=== PATIENT | male | born 1975 | race Caucasian/White ===

== ENCOUNTER 2021-09-26 09:50 | Outpatient (CLI) | payer BC, SELFPAY | END 2021-09-26 23:59 | disposition home or self-care (01) | LOC: PAT 01-06 09:51 | PROVIDERS: Visit Provider Anesthesiology Pain Medicine | DX: Z00.00 Encounter for general adult medical examination without abnormal findings (principal) ==

== ENCOUNTER 2023-06-29 18:37 | Emergency (ER) | payer BC, SELFPAY ==
[2023-06-29 18:39] VITALS: BP 152/95; PULSE 110; RESP 22; TEMP 36.3; O2SAT 100; BMI 38.9
== END 2023-06-29 19:21 | disposition left against medical advice (07) ==
LOC: ED 20:06
DX: Z00.00 Encounter for general adult medical examination without abnormal findings (principal)

== ENCOUNTER 2023-08-23 07:50 | Day surgery (SDC) | payer BC, SELFPAY ==
--- NOTE | 2023-08-21 08:54 | EKG12_ITS ---
Test Reason : PREOP Blood Pressure : / mmHG Vent. Rate : 088 BPM Atrial Rate : 088 BPM P-R Int : 128 ms QRS Dur : 074 ms QT Int : 336 ms P-R-T Axes : 020 035 073 degrees QTc Int : 406 ms Normal sinus rhythm Low voltage QRS Septal infarct , age undetermined Abnormal ECG Confirmed by ELLIS KWOK, BERNICE ([id number]), society editor JONATHAN THAO ([id number]) on 08/22/2023 6:20:51 AM Referred By: Lionel Farmer Confirmed By:BERNICE CORRAL MD
[2023-08-21 10:17] LABS: Hemoglobin 16.7 g/dL (13.0-16.5); Mean Corp Hgb Conc 35.5 g/dL (32-36); Mean Corpuscular Hgb 31.4 pg (27.0-32.0); Mean Corpuscular Volume 88.3 fL (80-94); Mean Platelet Vol. 9.9 fl (6.2-12.0); Platelet Count 324 K/mm3 (150-450); RBC Distribution Width CV 12.8 % (11.6-14.6); Red Blood Count 5.32 M/mm3 (4.6-6.2); White Blood Count 7.8 K/mm3 (4.4-11.0)
[2023-08-21 11:03] LABS: Anion Gap 8 (5-15); BUN 11 mg/dL (7-18); BUN/Creat Ratio 10.8 RATIO (10-20); Calcium,Total 9.3 mg/dL (8.5-10.1); Chloride 105 mmol/L (98-107); Creatinine, Serum 1.02 mg/dL (0.70-1.30); EST Glomerular Filtration Rate 84 mL/min (>60); Est Glom Filt Rate - Afr Amer 101 mL/min (>60); Glucose 93 mg/dL (74-106); Potassium 3.8 mmol/L (3.5-5.1); Sodium Level 140 mmol/L (136-145)
[2023-08-23] VITALS (9 sets, daily range): BP systolic 130–144; BP diastolic 73–94; PULSE 82–95; RESP 16–18; TEMP 36.3–36.9; O2SAT 94–99; BMI 39.6
--- OUTSIDE RECORDS SUMMARY | 2023-08-23 08:21 | XMS RPT_ITS | CCD ---
Author Name Unknown Address [address] [place] [address] Organization [facility] Care Team Providers Care Customs Broker Name Role Phone Radha KWOK, Patrice Haywood Primary Care Provider GILA PINO DO Attending Unavailable PHYSICIAN, NOT RECORDED Primary Care Unavaila ble Allergies Allergy Classification Reported Allergen(s) Allergy Type Date of Onset Reaction(s) Facility (7 sources) Acetaminophen / oxyCODONE Drug Allergy 6 Other: See Comments [facility] (7 sources) Codeine Drug Allergy 0 Hives, GI Upset, Itching [facility] Work Phone: (7 sources) Lisinopril Drug Allergy 8 Cough [facility] (7 sources) peanut allergenic extract Drug Allergy 3 Swelling [facility] Medications Completed/Discontinued Medications Medication Drug Class(es) Dates Sig (Normalized) Sig (Original) amLODIPine 10 mg oral tablet (9 sources) Dihydropyridine Calcium Channel [facility] Start: 06-13-2021 End: 09-11-2022 take 1 tablet by mouth once daily amLODIPine (NORVASC) 10 mg tablet Take 1 tablet by mouth once daily. 90 tablet 0 09/11/2022 Active Problems Active Problems Problem Classification Problem Date Documented Da te Episodic/Chronic Anxiety disorders (7 sources) Generalized anxiety disorder; Translations: [Generalized anxiety disorder] 01-20-2021 Chronic Essential hypertension (10 sources) Benign essential hypertension; Translations: [Essential (primary) hypertension] Onset: 02-26-2012 02-26-2012 Chronic Hemorrhoids (1 source) Hemorrhoids; Translations: [Unspecified hemorrhoids] Episodic Other eye disorders (1 source) Xanthoma of bilateral eyelids; Translations: [Xanthelasma of right eye, unspecified eyelid] Episodic Other nutritional; endocrine; and metabolic disorders (7 sources) Obesity; Translations: [Obesity, unspecified] Onset: 02-26-2012 02-26-2012 Chronic Other upper respiratory disease (7 sources) Allergic rhinitis; Translations: [Allergic rhinitis, unspecified] Onset: 02-26-2012 02-26-2012 Chronic Spondylosis; intervertebral disc disorders; other back problems (14 sources) Cervical radiculopathy; Translations: [Other spondylosis with radiculopathy, cervical region] Onset: 03-17-2013 03-17-2013 Chronic Past or Other Problems Problem Classification Problem Date Documented Da te Episodic/Chronic Other connective tissue disease (7 sources) Impingement syndrome of right shoulder region; Translations: [Impingement syndrome of right shoulder] Onset: 04-11-2019 04-11-2019 Episodic Other connective tissue disease (7 sources) Bursitis of shoulder; Translations: [Bursitis of right shoulder] Onset: 04-11-2019 04-11-2019 Episodic Other non-traumatic joint disorders (7 sources) Shoulder pain; Translations: [Pain in right shoulder] Onset: 04-11-2019 04-11-2019 Episodic Spondylosis; intervertebral disc disorders; other back problems (20 sources) Backache; Translations: [Dorsalgia, unspecified] Onset: 07-18-2013 07-18-2013 Episodic Results Test Name Value Interpretation Reference Range Facil ity Vital Signs Date Time Vital Sign Value Performing Clinician Faci lity 12-07-2021 11:19-0400 Body weight 127.46 kg Patrice Garcia MD Work Phone: [facility] 12-07-2021 11:19-0400 Diastolic blood pressure 82 mm[Hg] Patrice Garcia MD Work Phone: [facility] 12-07-2021 11:19-0400 Heart rate 96 /min Patrice Garcia MD Work Phone: [facility] 12-07-2021 11:19-0400 Systolic blood pressure 132 mm[Hg] Patrice Garcia MD Work Phone: [facility] Encounters Encounter Date Encounter Type Care Provider Facility Start: 06-29-2023 End: 06-29-2023 Emergency department patient visit [facility] Start: 09-11-2022 Arelycarlos Bobby Sima [employer] 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: [facility] Procedures Date Procedure Procedure Detail Performing Clinician Start: 03-05-2020 Adult depression screening assessment Patrice Garcia MD Work Phone: Plan of Treatment Date Care Activity Detail Author Start: 06-19-2027 Urine microalbumin profile DTA P,TDAP,TD (3 - Td or Tdap) [facility] Start: 12-07-2022 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 LIZA DISEASE VISIT ANNUAL PCP TEAM CHRONIC DISEASE VISIT [facility] Start: 08-20-2022 DEPRESSION ASSESSMENT DEPRESSION ASS ESSMENT [facility] Start: 04-20-2022 Influenza vaccination C [facility] Start: 01-20-2022 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 LIZA DISEASE VISIT ANNUAL PCP TEAM CHRONIC DISEASE VISIT [facility] Start: 01-20-2022 COVID-19 VACCINE (1) COVID-19 VACCIN E (1) [facility] Immunizations Immunization Date Immunization Notes Care Provider Fa cili 06-19-2017 tetanus toxoid, reduced diphtheria toxoid, and acellular pertussis vaccine, adsorbed Patrice Garcia MD Work Phone: [facility] Work Phone: 06-18-2017 influenza, injectabl e, quadrivalent, contains preservative Patrice Garcia MD Work Phone: [facility] 04-20-2004 diphtheria and tetan us toxoids, adsorbed for pediatric use Patrice Garcia MD Work Phone: [facility] 06-20-2003 influenza virus vaccine, whole virus Patrice Garcia MD Work Phone: [facility] 05-20-2002 influenza virus vaccine, whole virus Patrice Garcia MD Work Phone: [facility] 04-09-2001 Meningococcal, MCV4, unspecified conjugate formulation(groups A, C, Y and W-135) Patrice Garcia MD Work Phone: [facility] 12-23-1999 hepatitis A vaccine, unspecified formulation Patrice Garcia MD Work Phone: [facility] Payers Date Payer Category Payer Unknown [id number] 2018 Unknown [employer] PPO OOS [id number] 2018-Present [phone] [address] [place] [address] PPO [id number] 2018 Unknown [employer] CARD PPO OOS [id number] 2018-Present [phone] [address] [place] [id number] PPO [id number] 1975 Unknown [id number] Social History Date Type Detail Facility Start: 02-26-2012 Tobacco smoking stat [facility] Never smoked tobacco [facility] Start: 03-07-2021 End: 12-07-2021 Alcohol intake Current non-drinker of alcohol (finding) [facility] Start: 07-23-2020 End: 12-05-2021 History SDOH Alcohol Frequency 1 [facility] Start: 07-23-2020 End: 12-05-2021 History SDOH Social Connections Phone 5 [facility] Start: 03-05-2020 End: 12-05-2021 History SDOH Social Connections Get Together 2 [facility] Start: 03-05-2020 End: 12-05-2021 History SDOH Social Connections Sikh 3 [facility] Start: 05-19-2020 Education 18 [facility] Start: 1975 Sex Assigned At Not on file C [facility] Start: 12-05-2021 History SDOH Alcohol Std Drinks 98 [facility] Start: 11-27-2021 End: 12-07-2021 Exposure to SARS-CoV-2 (event) Not sure [facility] Start: 02-26-2012 Tobacco use and exposure Smoke less tobacco non-user [facility] Clinical Notes 07-17-2016 to 09-11-2022 Telephone Encounter - Jeana Mar LPN - 09/11/2022 2:38 PM ESTTelephone Encounter - Diamante Gao APRN.CNP - 09/11/2022 10:19 AM Vic Garcia MD - 12/07/2021 11:25 AM EDT Note Date & Type Note Facility 09-11-2022 Miscellaneous Notes Left a message for pt to call the office and ask to speak to a nurse. Jeana Mar LPN Due for routine follow-up. Please assist in scheduling. Diamante Gao APRN.CNP Patient has been identified by name and date of : Yes Requested Prescriptions Pending Prescriptions Disp Refills amLODIPine (NORVASC) 10 mg tablet 90 tablet 0 Sig: Take 1 tablet by mouth once daily. RX INSTRUCTIONS: Patient aware RX will be sent to pharmacy. No need to notify patient. Meghana King MA Mauri: 11/2021 (acute issue) No appointment scheduled Last refill; 06/13/2022 90 tablets documented in this encounter [facility] 06-23-2022 Miscellaneous Notes 90 day supply sent. Keep appointment as scheduled to keep getting refills. Diamante Gao APRN.CNP Patient scheduled for OV 07/21/22. Patient requesting 90 day fill as his insurance will not cover 30 days due to the program he's in. Can we submit 90 with no refills. Explained to patient if he cancels or no shows for the appt he will be back in the same boat in 3 months. He voiced understanding. Patient is overdue for annual physical. Please call to schedule OV. Pt reports his pharmacy called him and told him to call providers office and have a prescription sent in for 90 days instead of 30 days. Pt states he took his last pill today. Patient has been identified by name and date of : Yes Patient phones for refill(s): Requested Prescriptions Pending Prescriptions Disp Refills losartan (COZAAR) 50 mg tablet 90 tablet 1 Sig: Take 1 tablet by mouth once daily. Date of last office visit in primary care: 12/07/21 Future visit: none Last 2 Encounter Wt Readings: Date: Wt: 12/07/2021 127.5 kg (281 lb) 03/07/2021 125.5 kg (276 lb 9.6 oz) Previous labs/tests for medication: Blood Pressure: BUN (mg/dL) Date Value 03/05/2020 9 Sodium (mmol/L) Date Value 03/05/2020 136 Last 1 Encounter BP Readings: Date: BP: 12/07/2021 132/82 Please advise. Thank you. Radha Dumont RN documented in this encounter [facility] 06-13-2022 Miscellaneous Notes Patient is due for follow-up. Please assist in scheduling. Diamante Gao APRN.CNP Patient has been identified by name and date of : Yes Patient phones for refill(s): Requested Prescriptions Pending Prescriptions Disp Refills amLODIPine (NORVASC) 10 mg tablet 90 tablet 3 Sig: Take 1 tablet by mouth once daily. levocetirizine (XYZAL) 5 mg tablet 90 tablet 1 Sig: Take 1 tablet by mouth once daily. losartan (COZAAR) 50 mg tablet 30 tablet 5 Sig: Take 1 tablet by mouth once daily. Date of last office visit in primary care: 12/07/21 Please advise. Thank you. Suzanne Alva LPN documented in this encounter [facility] 12-26-2021 Miscellaneous Notes Patient has been identified by name and date of : Yes Pending Prescriptions Disp Refills LOSARTAN 50 MG TABLET 30 tablet 5 Sig: Take 1 tablet by mouth once daily. SHIVA: No RX INSTRUCTIONS: Patient aware RX will be sent to pharmacy. No need to notify patient. Meghana King MA Mauri: 11/2021 Nov: 01/2022 Last refill; 06/2021 documented in this encounter [facility] 12-16-2021 Miscellaneous Notes Patient has been identified by name and date of : Yes Patient phones for refill(s): Pending Prescriptions Disp Refills HYDROCORTISONE 2.5 % TOPICAL CREAM WITH PERINEAL APPLICATOR 28 g 2 Sig: by RECTAL route twice daily. SHIVA: No LEVOCETIRIZINE 5 MG TABLET 90 tablet 1 Sig: Take 1 tablet by mouth once daily. SHIVA: No Date of last office visit in primary care: MAURI 12/07/2021 Appointment scheduled for 02/06/2022 Last 2 Encounter Wt Readings: Date: Wt: 12/07/2021 127.5 kg (281 lb) 03/07/2021 125.5 kg (276 lb 9.6 oz) Please advise. Thank you. JOY Chand documented in this encounter [facility] 12-07-2021 Note HNO ID: [id number] Author: Patrice Garcia MD Service: ? Author Type: Physician Type: Progress Notes Filed: 12/07/2021 3:11 PM Note Text: Chief Complaint Patient presents with: Rectal Problem: hemorrhoids Back Pain: scitica bilateral HPI Ashutosh Longo is a 45 year old male who presents here today for Evaluation of hemorrhoids. Patient states that he has persistent hemorrhoids which never really go away. Will get 1-2 days of bleeding which seems to help with pain and swelling. Sits all day at work. Treating with Anusol cream BID for the last 10 months and Tucks pads. Using Senokot PRN for constipation. Is not on a fiber supplement or stool softener. Admits to pain with BM. Denies constipation, hard stools. Notes that his brother had his hemorrhoids removed and has done well since that time. Asking if he would be a candidate for this. Past medical history, appointments, medications, allergies reviewed. Previous Medical History PAST MEDICAL HISTORY Diagnosis Date - Acute appendicitis 06/24/2015 - Allergic rhinitis 02/26/2012 - Cervical radiculopathy due to degenerative joint disease of spine 03/17/2013 - Chronic bilateral low back pain with bilateral sciatica - Generalized anxiety disorder - Hemorrhoids - HTN (hypertension) - Obesity 02/26/2012 - Upper back pain on right side 07/18/2013 Previous Surgical History PAST SURGICAL HISTORY Procedure Laterality Date - LAPAROSCOPIC APPENDECTOMY 06/24/2015 - PAST SURGICAL HISTORY OF teeth pulled - PAST SURGICAL HISTORY OF Left ACL repair x 2 - [facility] Family History FAMILY HISTORY Problem Relation Age of Onset - Hypertension Mother - Ischemic Heart Disease Father coronary stent - other (ALS) Father - Hypertension Brother - No Known Problems Son - No Known Problems Daughter Patient Allergies ALLERGIES Allergen Reactions - Peanut Swelling Throat Swelling - Codeine Hives, GI Upset, Itching - Lisinopril Cough - Percocet [Oxycodone* Other: See Comments Nausea/vomiting Current Medications Current Outpatient Medications on File Prior to Visit Medication Sig - multivit,thx,calcium,iron,mins (MULTIVITAMIN AND MINERAL ORAL) Take by mouth. - losartan (COZAAR) 50 mg tablet Take 1 tablet by mouth once daily. - amLODIPine (NORVASC) 10 mg tablet Take 1 tablet by mouth once daily. - levocetirizine (XYZAL) 5 mg tablet Take 1 tablet by mouth once daily. - hydrocortisone (ANUSOL-HC) 2.5 % rectal cream by RECTAL route twice daily. - hydrOXYzine pamoate (VISTARIL) 25 mg capsule Take 1 capsule by mouth twice daily as needed for Anxiety. - traMADol (ULTRAM) 50 mg tablet To Wean: Take 1 tablet daily x 2 weeks, then 1 tablet every other day x2 weeks, then stop. - citalopram hydrobromide (CELEXA) 10 mg tablet Take 1 pill every other day for 4 weeks, then every 3rd day for 4 weeks, then stop. No current facility-administered medications on file prior to visit. Social History Social History Tobacco Use - Smoking status: Never Smoker - Smokeless tobacco: Never Used Substance Use Topics - Alcohol use: No - Drug use: No Comment: solotron vitamin and protein shakes Review of Symptoms REVIEW OF SYSTEMS See HPI EXAM: BP 132/82 Pulse 96 Wt 127.5 kg (281 lb) BMI 40.32 kg/m? General Appearance: Well appearing, alert, in no acute distress, well-hydrated, well nourished.. Skin: Xanthelasma noted on lower eyelids bilaterally. Rectal: Negative findings: anal sphincter tone normal, Positive findings: small fleshy hemorrhoid at 5 o'clock without thrombosis or TTP. Small internal hemorrhoids palpable at 12 o'clock without pain. No change in exam with bearing down. Health Maintenance List BP CONTROLLED (<130/80) Never done LIPID SCREEN due on 08/23/2017 DEPRESSION SCREENING due on 03/05/2021 HEPATITIS C SCREENING due on 01/20/2022 HIV SCREENING due on 01/20/2022 COVID-19 VACCINE(1) due on 01/20/2022 ANNUAL PCP TEAM CHRONIC DISEASE VISIT due on 01/20/2022 INFLUENZA(Season Ended) due on 04/20/2022 DTAP,TDAP,TD(3 - Td or Tdap) due on 06/19/2027 MENINGOCOCCAL CONJUGATE Aged Out ASSESSMENT/PLAN: 1. Hemorrhoids, unspecified hemorrhoid type - ICD9: 455.6, ICD10: K64.9 (primary diagnosis) Small non thrombosed external hemorrhoid with internal hemorrhoids. Discussed conservative therapy at this time with stool softener, OTC fiber supplement, pushing PO fluids. May use Anusol for pain/itching still. Red flags for re-assessment reviewed with patient in detail. - CBC - COMP METABOLIC PANEL 2. Xanthelasma of eyelid, bilateral - ICD9: 272.2, 374.51, ICD10: H02.63, H02.66 Recheck lipid panel. Will call with results. - LIPID PANEL, NONFASTING Patrice Garcia MD [facility] 12-07-2021 History of Presen t illness Narrative Chief Complaint Patient presents with: Rectal Problem: hemorrhoids Back Pain: scitica bilateral HPI Ashutosh Longo is a 45 year old male who presents here today for Evaluation of hemorrhoids. Patient states that he has persistent hemorrhoids which never really go away. Will get 1-2 days of bleeding which seems to help with pain and swelling. Sits all day at work. Treating with Anusol cream BID for the last 10 months and Tucks pads. Using Senokot PRN for constipation. Is not on a fiber supplement or stool softener. Admits to pain with BM. Denies constipation, hard stools. Notes that his brother had his hemorrhoids removed and has done well since that time. Asking if he would be a candidate for this. Past medical history, appointments, medications, allergies reviewed. Previous Medical History PAST MEDICAL HISTORY Diagnosis Date Acute appendicitis 06/24/2015 Allergic rhinitis 02/26/2012 Cervical radiculopathy due to degenerative joint disease of spine 03/17/2013 Chronic bilateral low back pain with bilateral sciatica Generalized anxiety disorder Hemorrhoids HTN (hypertension) Obesity 02/26/2012 Upper back pain on right side 07/18/2013 Previous Surgical History PAST SURGICAL HISTORY Procedure Laterality Date LAPAROSCOPIC APPENDECTOMY 06/24/2015 PAST SURGICAL HISTORY OF teeth pulled PAST SURGICAL HISTORY OF Left ACL repair x 2 - [facility] Family History FAMILY HISTORY Problem Relation Age of Onset Hypertension Mother Ischemic Heart Disease Father coronary stent other (ALS) Father Hypertension Brother No Known Problems Son No Known Problems Daughter Patient Allergies ALLERGIES Allergen Reactions Peanut Swelling Throat Swelling Codeine Hives, GI Upset, Itching Lisinopril Cough Percocet [Oxycodone* Other: See Comments Nausea/vomiting Current Medications Current Outpatient Medications on File Prior to Visit Medication Sig multivit,thx,calcium,iron,mins (MULTIVITAMIN AND MINERAL ORAL) Take by mouth. losartan (COZAAR) 50 mg tablet Take 1 tablet by mouth once daily. amLODIPine (NORVASC) 10 mg tablet Take 1 tablet by mouth once daily. levocetirizine (XYZAL) 5 mg tablet Take 1 tablet by mouth once daily. hydrocortisone (ANUSOL-HC) 2.5 % rectal cream by RECTAL route twice daily. hydrOXYzine pamoate (VISTARIL) 25 mg capsule Take 1 capsule by mouth twice daily as needed for Anxiety. traMADol (ULTRAM) 50 mg tablet To Wean: Take 1 tablet daily x 2 weeks, then 1 tablet every other day x2 weeks, then stop. citalopram hydrobromide (CELEXA) 10 mg tablet Take 1 pill every other day for 4 weeks, then every 3rd day for 4 weeks, then stop. No current facility-administered medications on file prior to visit. Social History Social History Tobacco Use Smoking status: Never Smoker Smokeless tobacco: Never Used Substance Use Topics Alcohol use: No Drug use: No Comment: solotron vitamin and protein shakes Review of Symptoms REVIEW OF SYSTEMS See HPI EXAM: BP 132/82 Pulse 96 Wt 127.5 kg (281 lb) BMI 40.32 kg/m General Appearance: Well appearing, alert, in no acute distress, well-hydrated, well nourished.. Skin: Xanthelasma noted on lower eyelids bilaterally. Rectal: Negative findings: anal sphincter tone normal, Positive findings: small fleshy hemorrhoid at 5 o'clock without thrombosis or TTP. Small internal hemorrhoids palpable at 12 o'clock without pain. No change in exam with bearing down. Health Maintenance List BP CONTROLLED (<130/80) Never done LIPID SCREEN due on 08/23/2017 DEPRESSION SCREENING due on 03/05/2021 HEPATITIS C SCREENING due on 01/20/2022 HIV SCREENING due on 01/20/2022 COVID-19 VACCINE(1) due on 01/20/2022 ANNUAL PCP TEAM CHRONIC DISEASE VISIT due on 01/20/2022 INFLUENZA(Season Ended) due on 04/20/2022 DTAP,TDAP,TD(3 - Td or Tdap) due on 06/19/2027 MENINGOCOCCAL CONJUGATE Aged Out ASSESSMENT/PLAN: 1. Hemorrhoids, unspecified hemorrhoid type - ICD9: 455.6, ICD10: K64.9 (primary diagnosis) Small non thrombosed external hemorrhoid with internal hemorrhoids. Discussed conservative therapy at this time with stool softener, OTC fiber supplement, pushing PO fluids. May use Anusol for pain/itching still. Red flags for re-assessment reviewed with patient in detail. - CBC - COMP METABOLIC PANEL 2. Xanthelasma of eyelid, bilateral - ICD9: 272.2, 374.51, ICD10: H02.63, H02.66 Recheck lipid panel. Will call with results. - LIPID PANEL, NONFASTING Patrice Garcia MD documented in this encounter [facility] 11-11-2021 Miscellaneous Notes Phoned patient and detailed VM left for patient to return call and schedule OV to discuss/address hemorrhoids. documented in this encounter [facility] 03-16-2021 Note HNO ID: [id number] Author: Noel Sanchez PT Service: ? Author Type: Physical Therapist Type: Progress Notes Filed: 03/16/2021 12:03 AM Note Text: Episode Visit Count: 1 Therapist That Will Oversee The Plan Of Care: Noel Sanchez PT Start of Care Date: 03/15/21 Onset Date: 03/02/20 Patient Identified by Name and Date of : Yes REHABILITATION AND SPORTS THERAPY PHYSICAL THERAPY EVALUATION PLAN OF CARE: Assessment: Ashutosh Longo presents with the chief complaint of B low back and B LE radicular symptoms. He presents with impairments of pain, sensation disturbance and resulting functional difficulties. PROMIS? (Patient-Reported Outcomes Measurement Information System) scores were reviewed and social roles domain , self efficacy domain and fatigue domain identified as a rehabilitation concern. He may benefit from skilled therapy services to improve pain, ROM, strength and posture to facilitate a return to prior functional level. Classification Low Back Pain Subgroup Classification: Core stabilization subgroup: recommended visits 10. Core Stabilization Subgroup Classification based on: pain with transitional movements (pain with prolonged positions) Prognosis: Good Good due to: current objective clinical presentation;good overall health status;good support system/ coping skills;acuteness of condition Goals for Episode of Care: created on 03/15/21 through 04/19/21 Independent in home exercises. Patient will decrease pain to 0/10 at rest and with functional activities to allow patient to improve bending and lifting. Restore pain-free lumbar ROM to WFL to allow for improved bending and twisting Sleep through night without pain/symptoms. Sit without limits, without pain/symptoms to allow for increased sitting tolerance Patient will be able to tolerate sitting, bending, lifting, laying supine and twisting without increased symptoms. Patient will increase strength of posture and core muscles to WFL to allow for increased sitting tolerance. Patient Goals: Alleviate all symptoms, especially the shooting pains. Planned Interventions, Frequency, and Duration: Current Frequency: 2x/week (pt requested 1x week to start) Duration: 5 weeks Total Number of Visits Planned: 10 Planned Treatment Interventions: Therapeutic exercise (29348);Neuromuscular re-education (20669);Manual therapy (46541);Therapeutic activities (26383);Self-detention management (39822);Patient/Family/Caregive r Education;Body Mechanics Training PLAN FOR NEXT VISIT: Continue with lumbar stabilization therex with extension directional preference. Progress therex to tolerance, including HEP. Also continue with PNE and consider manual belt traction prn. Patient demonstrates good understanding of plan of care and treatment. The above goals and plan of care were discussed and agreed upon by patient/family. SUBJECTIVE: Ashutosh Longo is a 45 year old male seen today for constant pain across both sides of low back and down posterior aspect of B LEs to toes. He reports that symptoms in R toes include 1st and 2nd toes and on L foot it is toes 3-5. He reports receiving multiple different explanations for his symptoms but unfortunately no complete resolution. He reports that injections helped but did not fully resolve symptoms, PT helped but did not fully resolve symptoms and pain medication helped but did not fully resolve symptoms. He reports that he has made dramatic improvements with his posture, body mechanics and work station ergonomics. He reports taht he has obtained a standing work station. Pt reports that he has been able to d/c all anxiety medication Patient Goals: Alleviate all symptoms, especially the shooting pains. Functional Limitations: sitting;bending;twisting (laying supine, lifting) Prior Level of Function: Independent without limitations Intake Information: Prescription present Previous Treatment: Physical Therapy?;Pain Management?;Pain meds?;Steroids?;Muscle relaxer?;Injections? Red Flags Vertebral Fracture Clinical Reasoning: No identified risk factors Abdominal Aortic Aneurysm Clinical Reasoning: No identified risk factors. Cancer Clinical Reasoning: No identified risk factors. Infection Clinical Reasoning: No identified risk factors. Cauda Equina Syndrome Clinical Reasoning: No identified risk factors. Red Flags - Cervical Cancer Clinical Reasoning: No identified risk factors. Infection Clinical Reasoning: No identified risk factors. Spine History Symptoms Location at Onset: Back Symptoms Since Onset: Improving (better than onset but not resolved) Pain is Worse Always: Bending;Sitting Pain is Better Sometimes: (massage relaxes back and buttocks) Previous Episodes: No Sleeping Position: Side lying left;Supine Sleep Affected by Pain: Pain keeps from falling asleep;Pain awakens Pain: Pain Pain Level: 4 (4/10 currently, 7-8/10 at worst in AM) Pain Location: (more content not included)... [facility] 03-07-2021 Note HNO ID: [id number] Author: Zhao Brown MD Service: ? Author Type: Physician Type: Progress Notes Filed: 03/07/2021 10:11 AM Note Text: [facility] Department Date: March 07, 2021 - 9:05 AM Ashutosh Longo is seen in consultation requested by Dr. Patrice Garcia for an opinion regarding chronic lower back pain. My final recommendations will be communicated back to the requesting physician by way of shared medical record or via US mail. Chief Complaint: back and leg pain SUBJECTIVE: Ashutosh Longo, is a 45 year old male who presents with lower back pain. The pain started 1+ year ago, with no known injury or trauma. The pain onset was gradual in nature. The patient states that the current pain is persistent and worsening. His pain is located in the bilateral lumbar region and radiates to bilateral lower extremities along posterior aspect to the level of toes . // The pain is described as tightness, spasms, shooting, and numbness. The pain intensity is rated 6. The pain is exacerbated by prolonged sitting and relieved by lying supine. Symptoms interfere with physical activity, walking, sleeping, sitting, driving and lifting. 50% pain in spine vs 50% (radiating) pain in the extremity. Worker's Compensation: No. Prior pain treatment has included physical therapy with minimal relief, Dates: 03/23/20 to 05/21/20, Massage therapy with minimal relief, Chiropractor with no relief, Medications: Tramadol with substantial relief, and Injections: Caudal injection 0% of improvement, L TFESI with 50% of improvement. ALLERGIES Allergen Reactions - Peanut Swelling Throat Swelling - Codeine Hives, GI Upset, Itching - Lisinopril Cough - Percocet [Oxycodone* Other: See Comments Nausea/vomiting Current Medications: Pain medications reviewed and reconciled in the medication list: Yes. Current Outpatient Medications Medication Sig - traMADol (ULTRAM) 50 mg tablet Take 1 tablet by mouth twice daily as needed for pain for up to 30 days. - hydrocortisone (ANUSOL-HC) 2.5 % rectal cream by RECTAL route twice daily. - hydrOXYzine pamoate (VISTARIL) 25 mg capsule Take 1 capsule by mouth twice daily as needed for Anxiety. - citalopram hydrobromide (CELEXA) 10 mg tablet Take 1 pill every other day for 4 weeks, then every 3rd day for 4 weeks, then stop. - losartan (COZAAR) 50 mg tablet Take 1 tablet by mouth once daily. - amLODIPine (NORVASC) 10 mg tablet Take 1 tablet by mouth once daily. - levocetirizine (XYZAL) 5 mg tablet Take 1 tablet by mouth once daily. No current facility-administered medications for this visit. PAST MEDICAL HISTORY Diagnosis Date - Acute appendicitis 06/24/2015 - Allergic rhinitis 02/26/2012 - Cervical radiculopathy due to degenerative joint disease of spine 03/17/2013 - Chronic bilateral low back pain with bilateral sciatica - Generalized anxiety disorder - Hemorrhoids - HTN (hypertension) - Obesity 02/26/2012 - Upper back pain on right side 07/18/2013 PAST SURGICAL HISTORY Procedure Laterality Date - LAPAROSCOPY, SURGICAL, APPENDECTOMY 06/24/2015 - PAST SURGICAL HISTORY OF teeth pulled - PAST SURGICAL HISTORY OF Left ACL repair x 2 - [facility] FAMILY HISTORY Problem Relation Age of Onset - Hypertension Mother - Ischemic Heart Disease Father coronary stent - other (ALS) Father - Hypertension Brother - No Known Problems Son - No Known Problems Daughter Social History: Alcohol Use: No Tobacco Use: Never Drug Use: No (solotron vitamin and protein shakes) Employer And Job Title: [employer] (No job title specified) Years Of Education Completed: Not specified Marital Status: with no children REVIEW OF SYSTEMS: Constitutional: (-) Fever (-) Night Sweats (-) Weight Gain (-) Weight Loss (-) Fatigue Cardiovascular: (-) Chest Pain (-) Palpitations (+) Lightheadedness (-) Swelling of Ankles (-) Hx Heart Surgery Respiratory: (-) Shortness of Breath (-) Cough (-) Wheezing (+) Snoring Gastrointestinal: (-) Incontinence (-) Abdominal Pain (-) Diarrhea (-) Constipation (-) Nausea/Vomiting (-) Heart Burn Endocrine: (-) Thyroid Disorder (-) Diabetes Hematologic: (-) Prolonged Bleeding (-) Easy Bruising Genitourinary: (-) Incontinence (-) Frequency (-) Urinary Urgency Skin: (-) Rashes (-) Itching (-) Other Lesions Neurologic: (+) Headache (-) Double Vision (-) Confusion (-) Paralysis (-) Vertigo (-) Syncope Psychiatric: (-) Depression (-) Anxiety (-) Delusions (-) Hallucinations (-) Suicidal Thoughts OARRS Report reviewed: Yes Narcotic Agreement reviewed and signed?: N/A Baseline Urine Toxicology obtained: N/A Urine Panel: Lab Results Component Value Date Cannabinoid Quant, Urine <16 01/20/2021 Benzoylecognine Quant, Urine <24 01/20/2021 6-Acetylmorphine Quant, Urine <5 01/20/2021 Amphetamine Quant, (more content not included)... [facility] 01-20-2021 Note HNO ID: [id number] Author: Patrice Garcia MD Service: ? Author Type: Physician Type: Progress Notes Filed: 01/21/2021 11:03 AM Note Text: Chief Complaint Patient presents with: [facility] HPI Ashutosh Longo is a 45 year old male who presents here today for transfer of care from Dr. Farmer. Patient states that chronic lower back pain with bilateral sciatica and is following up with Dr. Birmingham for epidural steroid injections. Patient's next appointment with their office is 02/24. States that he gets injections every 3 months which does reduce his back pain by about 50%. Dr. Farmer has been prescribing Tramadol for him because Dr. Birmingham will not based on patient report. Patient taking 1 pill at bedtime and 1/2 tablet in the morning as needed which is working well to control pain. Last dose this morning. Denies illicit drug use. Patient taking Celexa for anxiety after loss of his father 1 year ago from ALS. Symptoms have significantly improved. Has weaned himself off of xanax. Down to 10 mg on Celexa. Would like to wean off. BP consistently elevated despite compliance with current regimen. Past medical history, appointments, medications, allergies reviewed. Previous Medical History PAST MEDICAL HISTORY Diagnosis Date - Acute appendicitis 06/24/2015 - Allergic rhinitis 02/26/2012 - Cervical radiculopathy due to degenerative joint disease of spine 03/17/2013 - Chronic bilateral low back pain with bilateral sciatica - Generalized anxiety disorder - Hemorrhoids - HTN (hypertension) - Obesity 02/26/2012 - Upper back pain on right side 07/18/2013 Previous Surgical History PAST SURGICAL HISTORY Procedure Laterality Date - LAPAROSCOPY, SURGICAL, APPENDECTOMY 06/24/2015 - PAST SURGICAL HISTORY OF teeth pulled - PAST SURGICAL HISTORY OF Left ACL repair x 2 - [facility] Family History FAMILY HISTORY Problem Relation Age of Onset - Hypertension Mother - Ischemic Heart Disease Father coronary stent - other (ALS) Father - Hypertension Brother Patient Allergies ALLERGIES Allergen Reactions - Peanut Swelling Throat Swelling - Codeine Hives, GI Upset, Itching - Lisinopril Cough - Percocet [Oxycodone* Other: See Comments Nausea/vomiting Current Medications Current Outpatient Medications on File Prior to Visit Medication Sig - citalopram hydrobromide (CELEXA) 10 mg tablet Take 1 tablet by mouth once daily. - ALPRAZolam (XANAX) 0.25 mg tablet Take 1 tablet by mouth at bedtime as needed for up to 30 days. - traMADol (ULTRAM) 50 mg tablet Take 1 tablet by mouth twice daily as needed for Pain for up to 30 days. - losartan (COZAAR) 25 mg tablet Take 1 tablet by mouth once daily. - hydrocortisone (ANUSOL-HC) 2.5 % rectal cream by RECTAL route twice daily. - amLODIPine (NORVASC) 10 mg tablet Take 1 tablet by mouth once daily. - levocetirizine (XYZAL) 5 mg tablet Take 1 tablet by mouth once daily. No current facility-administered medications on file prior to visit. Social History Social History Tobacco Use - Smoking status: Never Smoker - Smokeless tobacco: Never Used Substance Use Topics - Alcohol use: No - Drug use: No Comment: solotron vitamin and protein shakes Review of Symptoms REVIEW OF SYSTEMS GENERAL: No weight loss, malaise or fevers RESPIRATORY: Negative for cough, hemoptysis, wheezing, COPD, dyspnea or shortness of breath CARDIOVASCULAR: Negative for chest pain, leg swelling, hypertension, CHF or palpitations GI: No nausea, vomiting, or diarrhea SKIN: Negative for lesions, rash, and itching EXAM: BP 156/94 Pulse 90 Resp 16 Ht 176.5 cm (5' 9.49 ) Wt 122.9 kg (271 lb) SpO2 97% BMI 39.46 kg/m? General Appearance: Well appearing, alert, in no acute distress, well-hydrated, well nourished.. Skin: Skin color, texture, turgor normal, no suspicious rashes or lesions. Lungs: Lungs clear to auscultation. No wheezing, rhonchi, rales.. Heart: RRR without murmur, gallop, or rubs. No ectopy. Abdomen: Normal abdominal exam, Abdomen soft, non-tender. Bowel sounds normal. No masses, organomegaly. Extremities: No deformities, edema, skin discoloration, clubbing or cyanosis. Good capillary refill. . Health Maintenance List BP CONTROLLED (<130/80) Never done LIPID SCREEN due on 08/23/2017 HEPATITIS C SCREENING due on 01/20/2022 HIV SCREENING due on 01/20/2022 COVID-19 VACCINE(1) due on 01/20/2022 DEPRESSION SCREENING due on 03/05/2021 INFLUENZA(Season Ended) due on 04/20/2021 ANNUAL PCP TEAM CHRONIC DISEASE VISIT due on 12/07/2021 DTAP,TDAP,TD(3 - Td or Tdap) due on 06/19/2027 MENINGOCOCCAL CONJUGATE Aged Out Data reviewed MRI Lumbar spine 09/2020: IMPRESSION: Minimal lumbar spondylosis superimposed on developmentally short pedicles, most significant at L4-5 and L5-S1, as detailed. Anatomic Lumbar Variant: None. L4-5 is considered the level of the iliac crest and assume there are 5 lum (more content not included)... [facility] documented as of this encounter (statuses as of 11/25/2021) [facility] History of Past illness Narrative* Problem Noted Date Resolved Date Chronic prescription opiate use 07/17/2016 05/28/2018 documented as of this encounter (statuses as of 12/07/2021) [facility] History of Past illness Narrative* Problem Noted Date Resolved Date Chronic prescription opiate use 07/17/2016 05/28/2018 documented as of this encounter (statuses as of 12/16/2021) [address]-2016 History of Past illness Narrative* Problem Noted Date Resolved Date Chronic prescription opiate use 07/17/2016 05/28/2018 documented as of this encounter (statuses as of 12/26/2021) [address]-2016 History of Past illness Narrative* Problem Noted Date Resolved Date Chronic prescription opiate use 07/17/2016 05/28/2018 documented as of this encounter (statuses as of 06/13/2022) [address]-2016 History of Past illness Narrative* Problem Noted Date Resolved Date Chronic prescription opiate use 07/17/2016 05/28/2018 documented as of this encounter (statuses as of 06/23/2022) [place] [id number] History of Past illness Narrative* Problem Noted Date Resolved Date Chronic prescription opiate use 07/17/2016 05/28/2018 documented as of this encounter (statuses as of 09/11/2022) [facility] Diagnosis Hemorrhoids, unspecified hemorrhoid type- Primary Xanthelasma of eyelid, bilateral [facility] encounter [facility]* Diagnosis Essential hypertension, benign [facility] Diagnosis Essential hypertension, benign [facility] Diagnosis Essential hypertension, benign documented in this encounter [facility] Summary Purpose Family History No Family History Records FoundNo Family History Records Found Advance Directives No Advanced Directives Records FoundNo Advanced Directives Records Found Additional Source Comments Source Comments (unrecognize d section and content) In the event this informatio n is protected by the Federal Confidentiality of Alcohol and Drug Abuse Patient Records regulations: The Federal rules restrict any use of the information to criminally investigate or prosecute any alcohol or drug abuse patient.[facility] this information is protected by the Federal Confidentiality of Alcohol and Drug Abuse Patient Records regulations: The Federal rules restrict any use of the information to criminally investigate or prosecute any alcohol or drug abuse patient.[facility] this information is protected by the Federal Confidentiality of Alcohol and Drug Abuse Patient Records regulations: The Federal rules restrict any use of the information to criminally investigate or prosecute any alcohol or drug abuse patient.[facility] this information is protected by the Federal Confidentiality of Alcohol and Drug Abuse Patient Records regulations: The Federal rules restrict any use of the information to criminally investigate or prosecute any alcohol or drug abuse patient.[facility] this information is protected by the Federal Confidentiality of Alcohol and Drug Abuse Patient Records regulations: The Federal rules restrict any use of the information to criminally investigate or prosecute any alcohol or drug abuse patient.[facility] this information is protected by the Federal Confidentiality of Alcohol and Drug Abuse Patient Records regulations: The Federal rules restrict any use of the information to criminally investigate or prosecute any alcohol or drug abuse patient.[facility] this information is protected by the Federal Confidentiality of Alcohol and Drug Abuse Patient Records regulations: The Federal rules restrict any use of the information to criminally investigate or prosecute any alcohol or drug abuse patient.[facility] Reason for Visit (unrecogniz ed section and content) Reason Comments Rectal Problem hemorrhoids Reason Onset Date Comments Refill Request 12/16/2021 Reason Onset Date Comments Refill Request 12/26/2021 Reason Onset Date Comments Refill Request 06/13/2022 Reason Onset Date Comments Refill Request 06/23/2022 Reason Onset Date Comments Refill Request 09/11/2022 Care Teams (unrecognized sec tion and content) Customs Broker Relationship Specialty Start Date End Date Patrice Garcai MD [address], [place] [id number] PCP - General Family Practice 01/22/21 Customs Broker Relationship Specialty Start Date End Date Patrice Garcia MD [address], [place] [id number] PCP - General Family Practice 01/22/21 Customs Broker Relationship Specialty Start Date End Date Patrice Garcia MD [address] [facility], [place] [id number] PCP - General Family Practice 01/22/21 Customs Broker Relationship Specialty Start Date End Date Patrice Garcia MD [address] [facility] [place] [place] [address] PCP - General Family Medicine 01/22/21 Customs Broker Relationship Specialty Start Date End Date Patirce Garcia MD [address] [facility], [place] [address] PCP - General Family Medicine 01/22/21 Customs Broker Relationship Specialty Start Date End Date Patrice Garcia MD [address] [facility], [place] [id number] PCP - General Family Medicine 01/22/21 (unrecognized sect ion and content) No Status Records FoundNo Status Records Found INFORMATION SOURCE (unrecogn ized section and content) DATE CREATED AUTHOR AUTHOR'S ORGANIZ ATION 07/08/2023 [facility] ([place]) FOR RECORDS PERTAINING TO PATIENTS WHO ARE OR HAVE BEEN ENROLLED IN A CHEMICAL DEPENDENCY/SUBSTANCEABUSE PROGRAM, SOME INFORMATION MAY BE OMITTED. This clinical summary was aggregated from multiple sources. Caution should be exercised in using it in the provision of clinical care. This summary normalizes information from multiple sources, and as a consequence, information in this document may materially change the coding, format and clinical context of patient data. In addition, data may be omitted in some cases. CLINICAL DECISIONS SHOULD BE BASED ON THE PRIMARY CLINICAL RECORDS. [facility] [employer] [facility]. provides no warranty or guarantee of the accuracy or completeness of information in this document.
[2023-08-23] MEDS: Lactated Ringers 1,000 ML 15 ML IV (08:37)
--- NOTE | 2023-08-23 09:18 | PCM.HP.BLA ---
History and Physical Date of Admission: 08/23/23 isit Reasons: Hernia Chief Complaint: abdominal pain Package Checker Required: No Is patient in pain?: No Allergies aspirin Allergy (Verified 07/31/23 13:30) Hivescodeine Allergy (Verified 07/31/23 13:30) Vomitingpeanut Allergy (Verified 07/31/23 13:30) Anaphylaxis Medications Levocetirizine Dihydrochloride [Xyzal] 5 mg PO DAILY PRN Allergies 06/23/15 [History Confirmed 07/31/23] acetaminophen 325 mg tablet (Tylenol) 325 mg PO Q6H PRN PRN Pain 06/23/15 [History Confirmed 07/31/23] amlodipine 10 mg tablet mg PO 07/31/23 [History Confirmed 07/31/23] losartan 50 mg tablet mg PO 07/31/23 [History Confirmed 07/31/23] PFSH Medical History (Updated 07/31/23 @ 13:[address] Lionel Farmer MD) Appendicitis HTN (hypertension) Surgical History (Updated 07/31/23 @ 13:28 by Barbi Robertson) S/P appendectomy S/P surgical manipulation of ankle joint Status post knee surgery Family History (Updated 07/31/23 @ 13:29 by Barbi Robertson) Father Hypertension Social History (Updated 07/31/23 @ 13:29 by Barbi Robertson) Smoking Status: Never smoker alcohol intake: never HPI HPI HPI: 47-year-old gentleman is being referred by Dr. César Brady for surgical consultation regarding symptomatic umbilical hernia and a written compromise surgical consult and recommendations will be returned to him. The patient felt a pop but has been able to reduce the area. He was seen at [facility] emergency room on June 29, 2023 where diagnosis of an umbilical hernia was made. I assisted the patient previously June 23, 2015 a laparoscopic appendectomy for acute appendicitis. He did do [employer] at that time was in reasonable shape he then had injured 3 disks in his back and he states that over the past couple years he has gained 40 pounds in weight. 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 Does not do any current vigorous physical activity. He was standing on a ladder hanging an item when he felt a sudden pop at the umbilical area. He points to the superior aspect of the umbilicus. Chronic medical problems include hypertension. He states that Dr. Brady instructs him this is secondary to his weight. ROS General General: No weight change, appetite, fatigue, colon cancer, breast cancer or weakness HEENT HEENT: No difficulty swallowing, eye injury, eye surgery, swollen glands or hoarseness Endo Endocrine: No thyroid disease, diabetes mellitus, thyroid cancer, Hair loss, heat intolerance or cold intolerance Skin Skin: No rash or changing moles Breast Breast: No left breast lump, right breast lump, nipple discharge, breast pain, abnormal mammogram, abnormal US or breast enlargement Musc Musculoskeletal: Yes back problems; No arthritis, rheumatoid arthritis, gout or joint pain Cardio Cardiovascular: Yes high blood pressure; No murmur, pacemaker, heart disease, atrial fibrillation, heart attack, heart stent, palpitations, shortness of breat with exertion or chest pain Psych Psychiatric: No depression, anxiety or hearing voices Resp Respiratory: No shortness of breath, No sleep apnea, No cough, No COPD, No asthma, No emphysema and No wheezing Gastro Gastrointestinal: Yes abdominal pain, No nausea or vomiting, No diarrhea, Yes constipation, Yes blood in stool, Yes acid reflux, Yes hemorrhoids, No ulcers, No gallbladder problem and No black,tarry stools Justin Hematologic: No blood thinners, No blood disorders, No bleeding, No anemia and No blood clots Neuro Neurologic: No system reviewed and no additional complaints, except as documented, No as per HPI, No abnormal gait, No abnormal hearing, No abnormal movements, No abnormal speech, No behavioral changes, No burning sensations, No confusion, No convulsions, No disequilibrium, No dizziness, No localized weakness, No frequent falls, No headache(s), No lack of coordination, No loss of vision, No memory loss, Yes numbness, No other visual disturbances, No radicular pain, No restless legs, No sensory deficit, No syncope, Yes tingling, No tremor(s), No weakness and No other Exam Const General: cooperative, healthy appearing, comfortable and no acute distress Nutritional Appearance: obese HENMT Head: normal to inspection Eyes General: appearance normal, both eyes and all related structures Neck Neck: normal visual inspection Chest Chest palpation & inspection: normal inspection of the chest Resp Effort & Inspection: normal respiratory effort Auscultation: clear to auscultation bilaterally Cardio Rate: regular rate Rhythm: regular rhythm GI Palpation: soft Other: Well-healed vertical incision at the inferior portion of the umbilicus. Palpable defect is more at the superior aspect of the umbilicus with some fibrofatty tissue. The patient is somewhat tender to palpation of this area but it is reducible. Weight. I cannot detect any internal organs Musc Cervical Spine: normal cervical lordosis Skin General: no rashes or lesions noted Neuro General: patient alert, patient awake and patient oriented x3 Extrem General: no calf tenderness Psych Appearance: grossly normal Assessment and Plan Assessment and Plan (1) Umbilical hernia without obstruction or gangrene: Status: Acute Plan: Patient likely has a ventral incisional hernia perhaps related to his remote laparoscopic appendectomy of June 2015. However the incision at that time was in the inferior portion of the umbilicus and the current hernia at the superior portion of the umbilicus. I recommend to him a direct approach. This would be due either a curvilinear transverse incision at that site. I discussed utilization of mesh. He is aware of the technique, benefit, risk, alternatives. No guarantees of success have been offered. Although the area currently is reducible it is obvious that when the area is protruding that it is uncomfortable for the patient. There are no signs of incarceration or strangulation at this time. He has had an opportunity to ask and have questions answered. We will schedule and proceed at his discretion. I appreciate the ongoing opportunity of assisting with his surgical care. Copy: Dr. César Farmer M.D., F.A.C.S. (2) Diverticulitis of colon: Status: Chronic (3) Incisional hernia I have examined the patient and the H&P has been reviewed. There are no clinical changes since date of exam. Lionel Farmer M.D., F.A.C.S.
--- NOTE | 2023-08-23 09:19 | DCINST_ITS ---
Discharge Instructions Procedure General Surgery Diet Discharge Diet: Light diet - advance as tolerated (if you have questions about your diet instructions, please talk to you doctor.) Activity Discharge Activity: May Not Drive (for 3-5 days or while taking narcotic pain medicine.) May shower in (days): 1 Lifting Restrictions: 10 pounds Dressing / Incision Call your doctor if your incision/area has: Continuous Slow Oozing, Sudden Increased Bleeding, Increased Pain/ Swelling, Increased Redness and Foul Smelling Discharge Call your doctor if you observe: Fever of 101 or Higher Suture Line Care: Avoid Pulling/Pushing and Avoid Pinching/Bending Additional Dressing/Incision Instructions:: Change or remove dressing in 4 days. Leave steri-strips in place for 1 week. Follow Up Care Please Follow Up With: Lionel Farmer MD When: Call [phone] to make an appointment to be seen in about 10 days. Test Results: Test results from this visit will be discussed in further detail at your follow- up appointment, if applicable. Discharge Plan Admission Attending Provider: Lionel Farmer Primary Care Provider: César Brady Discharge Orders/Prescriptions Prescriptions: No Action amlodipine 10 mg tablet 10 mg PO DAILY Patient Comments: TAKE 1 TABLET BY MOUTH EVERY DAY DIRECTED losartan 50 mg tablet 50 mg PO DAILY Patient Comments: TAKE 1 TABLET BY MOUTH EVERY DAY Levocetirizine Dihydrochloride [Xyzal] 5 MG tablet 5 mg PO DAILY PRN (Reason: Allergies) Patient Comments: allergies acetaminophen [Tylenol] 325 MG tablet 325 mg PO Q6H PRN PRN (Reason: Pain) Patient Comments: pain One-A-Day Men's Multivitamin 400-20-300 mcg tablet 1 tab PO DAILY Referrals / Follow Up: César Brady MD [Primary Care Provider] - Disposition Disposition (needs filled in before D/C Order can be placed): Home, Self Care
[2023-08-23] MEDS: Cefazolin 2 GM in 0.9% Normal Saline (100mL Bag) 100 ML IV (09:27)
--- NOTE | 2023-08-23 09:40 | HERN_PTH ---
PATHOLOGY RESULTS PATIENT: ASHUTOSH [place]ONGO [place] [facility] [place][id number] AGE/SX: 47/M ROOM: RE08/23/[address]: Dr. Lionel Farmer MD : 1975 BED: DIS: 08/23/2023 SPEC #: [id number] RECD: 08/24/23 07:37 STATUS: RADHA MARIO #: [id number] ADEOLA: 08/23/23 09:[address]: Lionel Farmer DEPT: SURGICAL PATHOLOGY RECD BY: Sharon Montano ENTERED: 08/24/23 07:37 SP TYPE: Hernia OTHR DR: Dr. César Brady MD Tissues: HERNIA Procedures: Surgery Specimen Level II HEADER OPERATION: Hernia, ventral/incisional repair with mesh PRE-OP DIAGNOSIS: Umbilical hernia TISSUE SUBMITTED: Hernia sac MICROSCOPIC DIAGNOSIS Hernia sac: A piece of fibroadipose and fibroconnective tissue, consistent with hernia sac with chronic inflammation and reactive changes. SJ:reyna 08/27/2023 MICROSCOPIC DESCRIPTION Slides are reviewed. GROSS DESCRIPTION Received in fixative is one container labeled with the patient's name and designated hernia sac. The specimen consists of a piece of adipose tissue measuring 7.5 x 5.0 x 2.5 cm. Sections do not reveal any mass lesion. Agriculture Mechanic sections are submitted in one cassette. / SALAS:reyna 08/24/2023 TC:5 CPT: 26704
[2023-08-23] MEDS: Bupivacaine Mpf 0.5% 30 ML VIAL (10:32)
--- NOTE | 2023-08-23 10:33 | PCM.OPRPT ---
Report of Operation Date of Procedure: 08/23/23 Pre-Operative Diagnosis: Symptomatic ventral incisional hernia at the umbilicus Post-Operative Diagnosis: Symptomatic ventral incisional hernia at the umbilicus 2 cm in diameter Surgery/Procedure Performed:: Ventral incisional herniorrhaphy with Ventralex ST 6.4 cm hernia patch. Reference [id number], lot [id number], expiry date 11/15/2023 Description of Surgical Findings:: Timeout and informed consent was obtained. The patient was taken the op room placed supine on the table underwent general endotracheal ovation anesthesia. Ancef 3 g were given intravenously. The abdomen sterilely prepped. A curvilinear incision was made in the superior aspect of the umbilicus sharp dissection carried down through the subcutaneous tissue it became apparent that there was a significant amount of fibrofatty tissue emanating from the hernia down deep in the subcutaneous tissue. I had to lengthen the incision a little bit in order to gain access down deep to the fascia. Electrocautery was used to transect the hernia sac no bowel involvement and the hernia sac was completely removed. Elevated subcutaneous tissue circumferentially around the defect so I could clearly identifies the size of the defect a 2 cm. Due to the depth I could not get retrorectus access so I placed a 6.[address] mesh into the defect made sure that it opened cleanly. The tails of the mesh were secured with interrupted 0 Nurolon. The fascia was then approximated transversely with interrupted 0 Nurolon and with each suture I was able to additionally fixate the anterior wall of the mesh as well. Repair was completed it appeared to be solid and intact the fascia and the dermal tissue was anesthetized with 30 cc of 0.5% Marcaine. Skin edges were approximated opted for Monocryl subdermal stitches. Steri-Strips cottonball Telfa OpSite dressing applied. Sponge and instrument and needle counts were reported the surgeon to be correct. Specimen hernia sac. Drains none. Blood loss minimal. The patient was taken to the recovery room in satisfactory addition without apparent complication Lionel Farmer M.D., F.A.C.S. Surgeon: Lionel Farmer Type of Anesthesia: General and Local Anesthesiologist: Cindy Pacheco
== END 2023-08-23 12:44 | disposition home or self-care (01) ==
LOC: SDC 07:50 → AC 07:54
PROVIDERS: PCP Family Medicine; Referring Provider Surgery; Visit Provider Surgery
PROC: (CPT 49593; principal; 2023-08-23 09:25)
DX: K43.2 Incisional hernia without obstruction or gangrene (principal); I10 Essential (primary) hypertension; K42.9 Umbilical hernia without obstruction or gangrene
CPT/HCPCS: 49593; 00752; 36415; 80048; 85027; 88302; 93005; C1781; J7120; J2405